=== PATIENT | female | born 1985 | race Hispanic/Latino ===

== ENCOUNTER 2017-08-10 00:18 | Inpatient (IN) | payer MEDICAID, SELFPAY ==
[2017-08-10 00:54] VITALS: BMI 39.4
--- NOTE | 2017-08-10 01:26 | PDOC.LDHP ---
Labor and Delivery H&P Chief complaint: contractions HPI: 32 yo @ 40w6d presents with contractions since 1900. She states that the contractions have been occurring every 5-7 minutes and getting stronger. She denies vaginal discharge, fluid loss, or vaginal bleeding. She does admit to movement. She has had no recent illness and has kept her PNC visits recently. She denies headaches, vision changes, n/v/d. She does note some lower extremity swelling that has gotten worse in the last couple of weeks. No other concerns tonight. Current gestational age (weeks): 40 (6 days ) Due date: 08/04/17 Dating criteria: first trimester ultrasound Grav: 4 Para: 2 Current complications: none Abnormal US findings: No Past Medical History: Herpes Current medications: pre-latasha vitamins, other (Acyclovir) Previous surgical history: none Social history: none - Physical Exam Abnormal vital signs: BP 150/81 General: NAD Heart: RRR Lungs: CTAB Abdomen: gravid Extremeties: trace edema FHT: category 2, variable decelerations Kathleen contractions every: 4-5 min - Vaginal Exam cm dilated: 4 Effacement: 50% Station: -3 - OB Labs Blood type: O RH: positive Antibody Screen: negative HIV: negative RPR: negative HEPSAg: negative 1 hour GCT: negative GBS: negative Urine drug screen: not done Rubella: immune - Assessment 1. Elevated BP - CBC, CMP, Urine Protein/Creatinine - Rule out pre-eclampsia - Monitor BP 2. TIUP, latent labor - Q4h cervical checks - monitoring - Pending herpes examination, will proceed with induction or 3. Hx of Herpes - Continue acyclovir - speculum exam to ensure no lesions. - If no lesions will proceed with induction - If lesions will proceed with in AM. - Plan Plan: admit to L&D <Dominic Hall - Last Filed: 08/10/17 01:33> <Yolanda Flowers - Last Filed: 08/10/17 07:52> Allergies/Adverse Reactions: Allergies Allergy/AdvReac Type Severity Reaction Status Date / Time No Known Allergies Allergy Unverified 08/10/17 00:46 Attending Addendum - Attending Addendum I personally evaluated the patient and discussed the management with Dr. Hall and Dr. Brambila I agree with the History, Examination, Assessment and Plan documented above with any addition or exceptions noted below. On speculum exam, the patient had an apparent scar at 12:00 on cervix at the location of her previous lesions, but no obvious active herpetic lesions. Patient was offered a section as a precaution but declined. Will proceed with IOL for severe preeclampsia. <Yolanda Flowers - Last Filed: 08/10/17 07:52>
[2017-08-10] MEDS ORDERED: Ondansetron HCl/PF 4 MG/2 ML Vial IVP PRN ×2 (01:36→22:15)
[2017-08-10] MEDS ORDERED: Promethazine HCl 25 MG/ML VIAL IM PRN ×2 (01:36→22:15)
[2017-08-10 02:20] LABS: ALT (SGPT) 7 U/L (8-55); AST (SGOT) 13 U/L (5-34); Albumin 3.5 g/dL (3.5-5.0); Alkaline Phosphatase 182 U/L (40-150); Anion Gap 13 mmol/L (10-20); BUN (Urea Nitrogen) 10 mg/dL (7.0-18.7); Bilirubin, Total 0.5 mg/dL (0.2-1.2); Calc. Creatinine Clearance 228 mL/min (70-130); Calcium 9.1 mg/dL (7.8-10.44); Carbon Dioxide 22 mmol/L (22-29); Chloride 107 mmol/L (98-107); Estimated GFR-MDRD Greater than 90; Globulin 3.6 g/dL (2.4-3.5); Glucose 78 mg/dL (70-105); Potassium 3.8 mmol/L (3.5-5.1); Protein, Total 7.1 g/dL (6.0-8.3); Sodium 138 mmol/L (136-145)
[2017-08-10] MEDS ORDERED: Labetalol HCl 100 MG/20 ML VIAL SLOW IVP PRN (02:32)
[2017-08-10] MEDS ORDERED: Calcium Gluc 4.6 MEQ/10 ML (100 MG/ML) SLOW IVP PRN (02:32)
[2017-08-10 02:33] LABS: #Basophils 0.1 thou/uL (0.0-0.2); #Lymphocytes 1.8 thou/uL (1.20-3.40); #Monocytes 0.6 thou/uL (0.11-0.59); #Neutrophils 5.6 thou/uL (1.40-6.50); %Basophils 0.8 % (0.0-1.0); %Eosinophils 0.4 % (0.0-10.0); %Lymphocytes 22.5 % (21.0-51.0); %Monocytes 7.7 % (0.0-10.0); %Neutrophils 68.5 % (42.0-75.0); Hemoglobin 11.1 g/dL (12.0-16.0); Mean Corpuscular HGB CONC 33.4 g/dL (32.0-36.0); Mean Corpuscular Hemoglobin 23.7 pg (27.0-31.0); Mean Platelet Volume 6.1 fL (7.4-10.4); Platelet Count 173 thou/uL (130-400); RBC Distribution Width 20.1 % (11.5-14.5); Red Blood Cell (RBC) Count 4.68 mill/uL (4.20-5.40); White Blood Cell (WBC) Count 8.2 thou/uL (4.8-10.8)
[2017-08-10 02:42] LABS: Hep B Surf Ag Non-Reactive S/CO (NonReactive)
[2017-08-10] MEDS ORDERED: Magnesium Sulfate 20 GM/WATER 500 ML BAG IVPB SCH (02:45)
[2017-08-10] MEDS ORDERED: Magnesium Sulfate 20 gm/500 ml 20 GM/500 ML BAG IVPB SCH ×2 (02:45→22:30)
--- NOTE | 2017-08-10 02:46 | PDOC.LDPN ---
Labor & Delivery Progress Note - Subjective Subjective: painful contractions - Objective Vital signs reviewed and normal: yes Abnormal vital signs: Elevated BP General: NAD, breathing through contractions Uterine fundus: non tender Dilation: 4 Effacement: 50% Station: -3 FHT: category 1 Other exam findings: Condylomatous lesion @ 12:00, no ulceration, no friable mucosa, non tender Resuscitative measures: maternal oxygen, maternal IV fluids, other (Magnesium) - Assessment (1) Term Code(s): Z34.80 - ENCOUNTER FOR SUPRVSN OF NORMAL , UNSP TRIMESTER Current Visit: Yes Status: Acute (2) Pre-eclampsia Code(s): O14.90 - UNSPECIFIED PRE-ECLAMPSIA, UNSPECIFIED TRIMESTER Current Visit: Yes Status: Acute Plan: continue plan of care, resuscitative measures -: 1. Term - Q4h cervix checks - monitoring 2. Pre-eclampsia - Mg - Mg protocol - Labetalol PRN
[2017-08-10] MEDS: Lactated Ringer's 1,000 ML IV SCH ×4 (02:52→23:39)
[2017-08-10 02:58] LABS: Creatinine, Urine 142.68 mg/dL (47-110)
--- NOTE | 2017-08-10 03:54 | PDOC.LDPN ---
Labor & Delivery Progress Note - Subjective Subjective: painful contractions - Objective Vital signs reviewed and normal: yes General: breathing through contractions Uterine fundus: non tender Dilation: 5/50-2 per RN FHT: category 2 (single prolonged decel to the 50s for 7 min, responded to resuscitative measures) [place] contractions every: unable to picker packer on monitor Other exam findings: FHTs cat II after recovery with mod robinson Resuscitative measures: maternal oxygen, maternal IV fluids, maternal position change - Assessment (1) Pre-eclampsia Code(s): O14.90 - UNSPECIFIED PRE-ECLAMPSIA, UNSPECIFIED TRIMESTER Current Visit: Yes Status: Acute (2) Term Code(s): Z34.80 - ENCOUNTER FOR SUPRVSN OF NORMAL , UNSP TRIMESTER Current Visit: Yes Status: Acute Plan: resuscitative measures -: continue maternal resuscitative measures and monitor FHTs. currently remote from delivery. discussed possibility of need for if continued NRFHT.
[2017-08-10 04:50] LABS: Syphilis Antibody Nonreactive (Nonreactive); Syphilis Antibody Index 0.03 S/CO (<1.00 Non-Reactive)
--- NOTE | 2017-08-10 04:57 | PDOC.EVN ---
Event Note - Event Note Event Note: S: 32 yo @ 40w6d presents with contractions. Patient denies any vision changes, headaches, or abdominal pain. Patient states she is in a lot of pain during contractions. No other concerns O: General: Painful contractions SVE: 5 / 80% / -2 CV: RRR, no murmurs Resp: CTA, no wheezing Extremities: Trace edema Abdomen: soft, gravid Neuro: DTR 2+ bilaterally A/P: 1. Term - Continue current plan of care - Continue Q4h cervical checks - Continue supportive care 2. Pre-eclampsia - BP better control - reflexes appropriate - Continue Mg - Continue Q2h checks
[2017-08-10] MEDS ORDERED: LR / Pitocin 40 units/1000 ml 1,000 ML ONE ×2 (07:11→09:10)
[2017-08-10] MEDS ORDERED: Lidocaine 1% (PF) 30 ML VIAL ONE (07:11)
[2017-08-10] MEDS ORDERED: Ibuprofen 800 MG TAB PO PRN (08:11)
--- NOTE | 2017-08-10 08:54 | DN-2 ---
DATE OF DELIVERY: 08/10/2017 U #: [id number]. DELIVERY PHYSICIANS: Henry Wade M.D., PGY-1 and Ron Mohan D.O., PGY-3. ATTENDING PHYSICIAN: Dr. Flowers. PROCEDURE: Spontaneous vaginal delivery. ANESTHESIA: None. ESTIMATED BLOOD LOSS: 150 mL. PREOPERATIVE DIAGNOSES: 1. Term intrauterine in labor. 2. Pre-eclampsia. 3. History of herpes. POSTOPERATIVE DIAGNOSES: 1. Term intrauterine , delivered. 2. Pre-eclampsia. 3. History of herpes. INDICATIONS: A 32-year-old female G4, P2-0-1-2, presents in active labor. DELIVERY NOTE: This is a 32-year-old female G4, P2-0-1-2, at 40.6 weeks, who delivered a viable kaylenea le at 07:21. Following an uneventful antepartum course, a vigorous female was delivered over an intact perineum in the occiput anterior position. Anterior shoulder and then remainder of the bod y delivered. No nuchal cord. The head was held down and mouth and nares were bulb suctioned. Cord was clamped and cut and cord blood collected. Baby was covered with thick meconium upon delivery. P lacenta delivered intact with a 3-vessel cord noted. Fundal massage was performed and the fundus was firm. The cervix and vagina were inspected and found to have a hemostatic second-degree laceration due to the laceration being hemostatic. There was no reason for repair at this time. Infant went to the nursery in good condition for routine care. Apgars were 8 and 9 at 1 and 5 minutes resp ectively. The patient tolerated delivery well and went to the after routine recovery/care . It should be noted that patient did have a scar around her vaginal wall concerning for herpes. Th ere were no clear lesions on exam, but that little scar area was swabbed. The patient was offered a due to the history of herpes and possible active herpes lesion, but again no real clear les ions were seen. She was offered a , but denied .
--- NOTE | 2017-08-10 10:56 | PDOC.PP ---
Post Progress Note Post Day #: 0 Subjective: Pt preeclamptic. Pt is doing well. Denies any headaches or vision changes. Denies any problems at this time Vital Signs (12 hours) Temp Pulse Resp BP 08/10/17 07:35 98.1 F 76 20 08/10/17 01:43 98.1 F 76 20 08/10/17 00:44 98.1 F 76 20 166/93 H Weight Weight 104.326 kg - Physical Examination General: NAD Cardiovascular: RRR Respiratory: non-labored breathing Neurological: no gross focal deficits Psychiatric: normal affect Result Diagrams: 08/10/17 01:33 08/10/17 01:33 Additional Labs: Post Labs Hep Bs Antigen Non-Reactive S/CO (NonReactive) 08/10/17 01:34 (1) Term delivered Code(s): O80 - ENCOUNTER FOR FULL-TERM UNCOMPLICATED DELIVERY Status: Acute (2) Pre-eclampsia Code(s): O14.90 - UNSPECIFIED PRE-ECLAMPSIA, UNSPECIFIED TRIMESTER Status: Acute - Assessment/Plan Magnesium Toxicity Assessment -Pt on magnesium for preeclampsia at this time. BP have been wnl -Reflexes +2. No clonus noted -No neuro defecit noted at this time. -Will continue to monitor q4hr with magnesium toxicity checks. Preeclampsia -on magnesium. plan above -Labetolol PRN for SBP>160 -BP wnl. continue to monitor Term Delivered -Delivered @ 7:21 via -Having no problems at this time -continue routine post care
[2017-08-10] MEDS ORDERED: Lidocaine 1% PF 5 ML VIAL ONE (15:00)
[2017-08-10] MEDS ORDERED: Propofol 200 MG/20 ML VIAL ONE (15:00)
[2017-08-10] MEDS ORDERED: Dexamethasone 20 MG/5 ML VIAL ONE (15:00)
[2017-08-10] MEDS ORDERED: PHENYLEPHRINE-NS 100 MCG/ML 10 ML SYRINGE ONE (15:00)
[2017-08-10] MEDS ORDERED: Ketorolac Tromethamine 30 MG/ML VIAL ONE (15:00)
[2017-08-10] MEDS ORDERED: Ondansetron HCl/PF 4 MG/2 ML Vial ONE (15:00)
--- NOTE | 2017-08-10 15:29 | PDOC.EVN ---
Event Note - Event Note Event Note: Mag Check Patient doing well. Denies any problems. No shortness of breath or nausea. Reflexes 2+/4. Lungs CTAB. Heart RRR; no m, r, g. Vitals normal. Urine output 150/hour over last 4 hours.
[2017-08-10] MEDS: Ibuprofen 800 MG TAB PO SCH ×4 (19:46→23:44)
[2017-08-10] MEDS: LR 500 ML/Oxytocin 10 units 500 ML IV SCH (19:46)
[2017-08-10] MEDS ORDERED: Preparation H Ointment 28 GM TUBE PR PRN (19:47)
[2017-08-10] MEDS ORDERED: LR / Pitocin 40 units/1000 ml 1,000 ML IV SCH (19:47)
[2017-08-10] MEDS ORDERED: Bisacodyl 10 MG SUPP PR PRN (19:47)
[2017-08-10] MEDS ORDERED: Lanolin Ointment 7 GM TUBE TOP PRN (19:47)
[2017-08-10] MEDS ORDERED: diphenhydrAMINE 25 MG CAP PO PRN (19:47)
[2017-08-10] MEDS ORDERED: Adacel (T-DAP) 0.5 ML VIAL IM ONE (19:47)
[2017-08-10] MEDS ORDERED: Benzocaine/Menthol 20-0.5% 60 ML CAN TOP PRN (19:47)
[2017-08-10] MEDS ORDERED: Prenatal Vitamin 1 TAB PO SCH (19:47)
[2017-08-10] MEDS ORDERED: Milk Of Magnesia 30 ML UDCUP PO PRN (19:47)
--- NOTE | 2017-08-10 20:05 | PDOC.EVN ---
Event Note - Event Note Event Note: S: 32 yo @ 40w6d delivered TAGA female via . Patient states she has a slight headache. She denies vision changes, abdominal pain, or fevers/chills. No other concerns. O: General: NAD CV: RRR, no murmurs Resp: CTA, no wheezing Extremities: Trace edema Abdomen: soft, gravid Neuro: DTR 2+ bilaterally Urine output been 150ml/hr A/P: 1. Term , delivered - Continue routine care 2. Pre-eclampsia - BP well controlled - Urine output appropriate - Continue Mg for 24 hours. - Continue q2h checks <Dominic Hall - Last Filed: 08/10/17 20:03> Attending Addendum - Attending Addendum I was called to room for evaluation of a deviated and uterus and fundal height to liver. Exam not tolerated well by patient. LArge clot and membranous material in lower uterine segment. Fundus confirmed deviated to pt rt and at level of liver/ribs. Pt taken to OR for exam underanesthesia, D&C. See op note for details. <Naseem Marie - Last Filed: 08/11/17 07:32>
[2017-08-10] MEDS ORDERED: Magnesium Sulfate 20 gm/500 ml 20 GM/500 ML BAG ONE (20:40)
[2017-08-10] MEDS ORDERED: Misoprostol 200 MCG TAB ONE (20:40)
[2017-08-10] MEDS ORDERED: Carboprost 250 MCG/ML AMP ONE (20:40)
[2017-08-10] MEDS ORDERED: Fentanyl 100 MCG/2 ML VIAL ONE (20:51)
[2017-08-10] MEDS: Docusate Calcium (SURFAK) 240 MG CAP PO SCH ×2 (21:42→23:39)
[2017-08-10] MEDS: Ferrous Sulfate 325 MG TAB PO SCH (21:43)
[2017-08-10] MEDS ORDERED: Lidocaine 1% w/Epinephrine 1:200K 30 ML VIAL ONE (22:12)
[2017-08-10] MEDS ORDERED: Bupivacaine PF 0.5% 30 ML VIAL ONE (22:12)
[2017-08-10] MEDS ORDERED: Promethazine HCl 25 MG/ML VIAL SLOW IVP PRN (22:15)
[2017-08-10] MEDS ORDERED: Acetaminophen 325 MG/10.15 ML UDCUP PO PRN (22:17)
--- NOTE | 2017-08-11 03:58 | PDOC.EVN ---
Event Note - Event Note Event Note: S: 32 yo @ 40w6d delivered TAGA female via . Patient has no complaints. She denies headaches, vision changes, abdominal pain, or fevers/ chills. No other concerns. O: General: NAD CV: RRR, no murmurs Resp: CTA, no wheezing Extremities: No edema Abdomen: soft Neuro: DTR 2+ bilaterally Urine output been 150ml/hr A/P: 1. Term , delivered - Continue routine care 2. Pre-eclampsia - BP well controlled (130s/70s) - Urine output appropriate - Continue Mg for 24 hours post delivery - Continue q4h checks
--- NOTE | 2017-08-11 04:51 | OP ---
DATE OF PROCEDURE: 08/10/2017 PREOPERATIVE DIAGNOSES: 1. Large retained clot with deviated uterus. 2. Large volar skin tag. POSTOPERATIVE DIAGNOSES: 1. Large retained clot with a deviated uterus. 2. Large volar skin tag. PROCEDURE: Exam under anesthesia, evacuation of lower uterine segment with sharp D&C and excision of a volar skin tag. SURGEON: Dr. Naseem Marie. CONTROLS DESIGN ENGINEER: Dr. Nettles, resident. ANESTHESIA: General. ESTIMATED BLOOD LOSS: 200 mL total blood clot. FINDINGS: Large volar skin tag, large deviated uterus near the level of the liver preoperatively wit h the uterus more midline and near the umbilicus postoperatively. COMPLICATIONS: None. CONDITION: Stable. DISPOSITION: To recovery room. DESCRIPTION OF PROCEDURE: Ms. Naye Pizarro was taken to the operating room for exam under anesthesia after being called to the bedside for a large deviated uterus. The patient had not been bleeding muc h more than usual throughout the day; however, the nurse was very concerned about the fundal exam. On exam, patient was noted to have a uterus fundus near the level of the liver and ribcage confirmed by bedside ultrasound. There was a large clot visible in the lower uterine segment. With this unusu al finding an attempt was made at the bedside to remove this clot which was not tolerate well by the patient so we moved the patient to the operating room to complete this procedure. There under genera l anesthesia the patient was placed in lithotomy position and in candy cane stirrups. The patient wa s noted on bimanual exam to have a large deviated uterus, though not bleeding much. In the lower marek rine segment was a large well consolidated well-formed clot approximately 200 mL total blood. Once t he clot was removed a large curet was then used to gently curet the inside the uterus. Prior to this uterus was noted to have a uterine length of 21 cm. After the curetting, the patient was noted to h ave a uterus fundus come more midline and down to the umbilicus. The patient was noted to have minim al bleeding. The left vulva was noted to have a large skin tag. The patient expressed interest for removal. An incision was then made, an elliptical incision around the base of this pedunculated skin tag and the skin was then closed with 4-0 Monocryl. Once this was completed, the patient was taken out of lithotomy position and taken to recovery room in stable condition.
[2017-08-11] MEDS ORDERED: CEFAZOLIN/Water 2 GM/20 ML SYRINGE ONE (06:14)
[2017-08-11] MEDS ORDERED: CEFAZOLIN 2 GM in Sodium Chloride 0.9% 100 ML IVPB SCH (06:15)
[2017-08-11] MEDS: LR 500 ML/Oxytocin 10 units 500 ML IV SCH (06:23)
[2017-08-11] MEDS ORDERED: CEFAZOLIN/Water 2 GM/20 ML SYRINGE SLOW IVP SCH (06:30)
[2017-08-11 07:35] LABS: Hemoglobin 8.7 g/dL (12.0-16.0); Mean Corpuscular HGB CONC 32.6 g/dL (32.0-36.0); Mean Corpuscular Hemoglobin 23.7 pg (27.0-31.0); Mean Corpuscular Volume 72.6 fl (81.0-99.0); Mean Platelet Volume 10.2 fL (7.4-10.4); Platelet Count 158 thou/uL (130-400); RBC Distribution Width 20.5 % (11.5-14.5); Red Blood Cell (RBC) Count 3.69 mill/uL (4.20-5.40); White Blood Cell (WBC) Count 6.8 thou/uL (4.8-10.8)
--- NOTE | 2017-08-11 08:14 | PDOC.PP ---
Post Progress Note Post Day #: 1 Subjective: Pt is doing fine this morning. Reports light bleeding. Bright blood. Denies any weakness. Denies any lightheadness, dizziness, headaches or vision changes. Pt roports and doing well. Pt has no concerns or complaints at this time. PO intake tolerated: yes Flatus: yes Ambulation: yes Vital Signs (12 hours) Temp Pulse Resp 08/11/17 04:00 98.6 F 82 16 08/11/17 00:00 98.6 F 106 H 16 Weight Weight 104.326 kg - Physical Examination General: NAD Cardiovascular: no m/r/g, RRR Respiratory: clear to auscultation bilaterally, non-labored breathing Abdominal: + bowel sounds, no distention, appropriately TTP Extremities: negative homans (B) Skin: no rash Neurological: no gross focal deficits Deviation from normal: reflexes +2, no clonus Psychiatric: A&Ox3, normal affect Result Diagrams: 08/11/17 07:25 08/10/17 01:33 Additional Labs: Post Labs Hep Bs Antigen Non-Reactive S/CO (NonReactive) 08/10/17 01:34 (1) Term delivered Code(s): O80 - ENCOUNTER FOR FULL-TERM UNCOMPLICATED DELIVERY Status: Acute (2) Pre-eclampsia Code(s): O14.90 - UNSPECIFIED PRE-ECLAMPSIA, UNSPECIFIED TRIMESTER Status: Acute - Assessment/Plan 1. Term , delivered - Continue routine care -Hgb 8.8. Pt denies any wekaness or lightheadness. Had D&C overnight to evacuate 200ml of blood from uterus. -Uterus is firm upon palpation. No acute bleed noted upon palpation. Pt appropriately tender. Will continue to monitor for any signs of bleed. 2. Pre-eclampsia - BP well controlled (130s-140's/70s) - Urine output appropriate - Mg has been discontinued at this time. 24 hours post delivery. -Will continue to monitor BP. Labetolol PRN for SBP>160 -Will continue to monitor patient for signs and sx's and tx appropriately <Henry Lawler - Last Filed: 08/11/17 08:16> Weight Weight 230 lb Result Diagrams: 08/12/17 06:02 08/10/17 01:33 Additional Labs: Post Labs Hep Bs Antigen Non-Reactive S/CO (NonReactive) 08/10/17 01:34 <Naseem Marie - Last Filed: 08/15/17 20:08> Attending Addendum - Attending Addendum I personally evaluated the patient and discussed the management with Dr. lawler I agree with the History, Examination, Assessment and Plan documented above with any addition or exceptions noted below. <Naseem Marie - Last Filed: 08/15/17 20:08>
[2017-08-11] MEDS ORDERED: LR / Pitocin 40 units/1000 ml 1,000 ML IV SCH (08:54)
[2017-08-11] MEDS ORDERED: Bisacodyl 10 MG SUPP PR PRN (08:54)
[2017-08-11] MEDS ORDERED: Benzocaine/Menthol 20-0.5% 60 ML CAN TOP PRN (08:54)
[2017-08-11] MEDS ORDERED: Acetaminophen/Codeine 30-300mg Tablet PO PRN ×2 (08:54)
[2017-08-11] MEDS ORDERED: Lanolin Ointment 7 GM TUBE TOP PRN (08:54)
[2017-08-11] MEDS ORDERED: Milk Of Magnesia 30 ML UDCUP PO PRN (08:54)
[2017-08-11] MEDS ORDERED: Ondansetron HCl/PF 4 MG/2 ML Vial IVP PRN (08:54)
[2017-08-11] MEDS ORDERED: Ferrous Sulfate 325 MG TAB PO SCH (10:00)
[2017-08-11] MEDS ORDERED: LR 500 ML/Oxytocin 10 units 500 ML IV SCH (10:45)
[2017-08-11] MEDS: Docusate Calcium (SURFAK) 240 MG CAP PO SCH ×2 (11:52→21:48)
[2017-08-11] MEDS: Prenatal Vitamin 1 TAB PO SCH (11:52)
[2017-08-11] MEDS: Ferrous Sulfate 325 MG TAB PO SCH ×2 (11:53→17:31)
[2017-08-11] MEDS ORDERED: Adacel (T-DAP) 0.5 ML VIAL IM ONE (12:00)
[2017-08-12 06:22] LABS: Hemoglobin 7.6 g/dL (12.0-16.0); Mean Corpuscular HGB CONC 31.4 g/dL (32.0-36.0); Mean Corpuscular Hemoglobin 23.3 pg (27.0-31.0); Mean Corpuscular Volume 74.1 fl (81.0-99.0); Mean Platelet Volume 9.6 fL (7.4-10.4); Platelet Count 163 thou/uL (130-400); RBC Distribution Width 20.8 % (11.5-14.5); Red Blood Cell (RBC) Count 3.25 mill/uL (4.20-5.40); White Blood Cell (WBC) Count 6.5 thou/uL (4.8-10.8)
--- NOTE | 2017-08-12 06:27 | PDOC.PP ---
Post Progress Note Post Day #: 2 Subjective: Pt is doing well this morning. Denies any plain. Reports light bleeding. Denies any n/v. Denies any lightheadness or dizziness when she gets up. Says she has been tolerating PO. No other concerns this morning. PO intake tolerated: yes Flatus: yes Ambulation: yes Vital Signs (12 hours) Temp Pulse Resp BP 08/12/17 04:29 78 18 130/70 08/11/17 23:44 98.5 F 92 16 131/68 08/11/17 20:00 98.5 F 102 H 18 132/70 Weight Weight 104.326 kg - Physical Examination General: NAD Cardiovascular: no m/r/g, RRR Respiratory: clear to auscultation bilaterally, non-labored breathing Abdominal: + bowel sounds, lochia (Light), no distention, appropriately TTP Extremities: negative homans (B) Skin: no rash Neurological: no gross focal deficits Psychiatric: A&Ox3, normal affect Result Diagrams: 08/12/17 06:02 08/10/17 01:33 Additional Labs: Post Labs Hep Bs Antigen Non-Reactive S/CO (NonReactive) 08/10/17 01:34 (1) Term delivered Code(s): O80 - ENCOUNTER FOR FULL-TERM UNCOMPLICATED DELIVERY Status: Acute (2) Pre-eclampsia Code(s): O14.90 - UNSPECIFIED PRE-ECLAMPSIA, UNSPECIFIED TRIMESTER Status: Acute (3) Anemia Code(s): D64.9 - ANEMIA, UNSPECIFIED Status: Acute QualifierTitle: Other causes of anemia: acute posthemorrhagic (4) S/P dilatation and curettage Status: Acute - Assessment/Plan 1. Term , delivered -->3 delivered @ 40.6 wks via @ 7:21 on 08/10 to a viable female infant - Continue routine care -Hgb down to 7.6. Pt denies any wekaness or lightheadness. Had D&C a night ago to evacuate 200ml of blood from uterus. -Uterus is firm upon palpation. No acute bleed noted upon palpation. Pt appropriately tender. Will continue to monitor for any signs of bleed. No tachycardia noted overnight. -Pt on Iron BID. Pt doing well. Likely will dishcarge this morning. -Will have her f/u in 1-2 weeks 2. Pre-eclampsia - BP well controlled (130s/70s) - Urine output appropriate - Mg has been discontinued yesterday. -Will continue to monitor BP. Labetolol PRN for SBP>160 -Will continue to monitor patient for signs and sx's and tx appropriately. 3) Post op Day 1 D&C -D&C a night ago. -Hgb is down to 7.6. Pt reports light lochia. Denies any pain on palpation of belly. -Denies any lightheadness or weakness. Doing well. having no complications at this time. <Henry Wade - Last Filed: 08/12/17 06:28> Weight Weight 104.326 kg Result Diagrams: 08/12/17 06:02 08/10/17 01:33 Additional Labs: Post Labs Hep Bs Antigen Non-Reactive S/CO (NonReactive) 08/10/17 01:34 - Assessment/Plan Examined with Dr. Wade I agree with assessment and plan. <Maged Portillo - Last Filed: 08/14/17 08:15>
[2017-08-12 07:55] VITALS: BP 147/67; TEMP 98.2
[2017-08-12] MEDS: Ferrous Sulfate 325 MG TAB PO SCH (08:50)
[2017-08-12] MEDS: Prenatal Vitamin 1 TAB PO SCH (08:50)
[2017-08-12] MEDS: Docusate Calcium (SURFAK) 240 MG CAP PO SCH (08:50)
== END 2017-08-12 14:15 | disposition home or self-care (01) | DRG 767 ==
LOC: L&D/OP 00:18 → L&D 02:22 → 3SW 08-11 09:26
PROVIDERS: ADMIT Obstetrics & Gynecology; ATTEND Obstetrics & Gynecology
PROC: 10E0XZZ Delivery of Products of Conception, External Approach (ICD-10-PCS; principal; 2017-08-10)
PROC: 10D17ZZ Extraction of Products of Conception, Retained, Via Natural or Artificial Opening (ICD-10-PCS; 2017-08-10)
PROC: 0UBMXZZ Excision of Vulva, External Approach (ICD-10-PCS; 2017-08-10)
DX: O70.1 Second degree perineal laceration during delivery (principal); Z37.0 Single live birth; O88.23 Thromboembolism in the puerperium; O98.32 Other infections with a predominantly sexual mode of transmission complicating childbirth; O71.2 Postpartum inversion of uterus; D62 Acute posthemorrhagic anemia; Z3A.40 40 weeks gestation of pregnancy; A60.00 Herpesviral infection of urogenital system, unspecified; N90.89 Other specified noninflammatory disorders of vulva and perineum; O90.81 Anemia of the puerperium; Z23 Encounter for immunization; O14.94 Unspecified pre-eclampsia, complicating childbirth
CPT/HCPCS: 36415; 80053; 82570; 83735; 84156; 85025; 85027; 86780; 87340; 88304; 90715; 99285; J1100; J1885; J2001; J2405; J2704; J3010; J3475; J3490; S0020